=== PATIENT | female | born 1980 | race Hispanic/Latino ===

== ENCOUNTER 2020-12-28 10:31 | Emergency (ER) | payer OTHER, SELFPAY ==
[~2020-12-28] VITALS: Ht 162.6 cm; Wt 104.3 kg
[2020-12-28 10:33] VITALS: BP_SYST 139; BP_SYST 169; BP_DIAS 79
[2020-12-28] MEDS ORDERED: ALBUHFA IH (12:18)
[2020-12-28] MEDS ORDERED: D-ME1POW16 PO (12:18)
[2020-12-28] MEDS ORDERED: IVER3TAB PO (12:18)
[2020-12-28] MEDS ORDERED: FLUT1DIS IH (12:18)
== END 2020-12-28 12:43 | disposition home or self-care (01) ==
LOC: EDH 10:31
DX: U07.1 COVID-19 (principal); B34.9 Viral infection, unspecified; E66.9 Obesity, unspecified; R03.0 Elevated blood-pressure reading, without diagnosis of hypertension; Z79.51 Long term (current) use of inhaled steroids; Z79.899 Other long term (current) drug therapy
CPT/HCPCS: 87426; 87804; 87880